=== PATIENT | male | born 1995 | race Caucasian/White ===

== ENCOUNTER 2024-10-24 09:21 | Emergency (ER) | payer BC, SELFPAY ==
[2024-10-24 09:35] VITALS: BP 131/84
[2024-10-24 10:16] LABS: COVID-19 Antigen Positive (Negative)
--- NOTE | 2024-10-24 10:31 | ED.GENMED ---
History of Present Illness
General
Chief Complaint: Cold/Flu/URI Symptoms
Time Seen by Provider: 10/24/24 10:30
History of Present Illness
History of Present Illness:
29-year-old male without any significant past medical history presenting to the emergency department for cough and palpitations. Patient reports that he has been feeling unwell for the past 3 days with chills, cough, tightness in his chest. He
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 Denies any known sick contacts, however his started to feel similarly this morning. Denies abdominal pain or GI symptoms. Denies any cardiac history in the
past. Denies any difficulty breathing. Denies additional acute medical complaints
Phy Exam
Physical Exam
Physical Exam:
General: Well-appearing, no clinical signs of dehydration, nontoxic and in no acute distress
HEENT: protecting airway
Neck: appears supple
CV: Normal heart rate, regular rhythm
Resp: No accessory muscle use, no increased work of breathing, lungs clear to auscultation bilaterally
Abd: No distention
Extremities: No deformities, no swelling
Neuro: alert, no focal neurologic deficit
: deferred
Rectal: deferred
Psych: Normal affect
Skin: Intact
Course
Orders/Labs/Results
Orders:
Orders
10/24/24 09:39
ECG [Electrocardiogram (*1)] Urgent
Reason for Study: Palpitations
10/24/24 09:40
EKG- Treatment ONCE
10/24/24 09:47
COVID-19 Antigen Urgent
Source: Nasal Swab
Influenza A+B Rapid Molecular Urgent
AMY Source: Nasal Swab
Specimen Description:
Abnormal Lab Results
10/24/24
09:47
SARS-CoV-2 Antigen Positive A
(Negative)
Vital Signs
Initial and Last Documented VS:
Initial Vital Signs
Temp Pulse Resp BP Pulse Ox
98.3 F 97 16 131/84 100
10/24/24 09:35 10/24/24 09:35 10/24/24 09:35 10/24/24 09:35 10/24/24 09:35
Last Documented Vital Signs
Temp Pulse Resp BP Pulse Ox
98.3 F 97 16 131/84 100
10/24/24 09:35 10/24/24 09:35 10/24/24 09:35 10/24/24 09:35 10/24/24 09:35
MDM/Problems Addressed
MDM/Problems Addressed:
29-year-old male without significant past medical history presenting for chills, cough, palpitations, chest tightness. Vital signs are normal.
On exam patient is resting comfortably, no acute distress or discomfort. Unremarkable cardiac and pulmonary exam. Heart rate is regular and patient in no acute respiratory distress. No focal abnormal lung sounds. Patient had viral swabs obtained
prior to my assessment, is COVID-positive, consistent with patient underlying symptoms. EKG obtained, nonischemic without concern for ACS. Do feel patient tightness and palpitations secondary to underlying infection and coughing. Ambulatory pulse
ox obtained, no desaturation. At this time feel stable for discharge with outpatient supportive therapy. Advised Tylenol, Motrin, fluids, rest. Return precautions discussed and patient verbalized understanding
*EKG
Interpreted by ED Provider?: Yes
EKG Intrepretation Date: 10/24/24
EKG Intrepretation Time: 10:58
Interpretation: normal
Comparison EKG: no comparison EKG present
Heart Rate: 85
Rate: normal
Rhythm: sinus
[place]: normal axis
Interval: normal interval
QRS Pattern: normal QRS
Ischemia: no ischemia
*Critical Care Note
Total Time (30-74mins, 75-104mins- exclusive of procedures): Not Applicable
ED Attending Note
-
Portions of this chart may have been created with voice recognition software.� Occasional wrong word or��sound alike� substitutions may have occurred due to the inherent limitations of voice recognition software.
Discharge Plan
Discharge Date and Time
Print Language: FILIPINO
== END 2024-10-24 11:30 | disposition home or self-care (01) ==
LOC: EMR 09:21
PROVIDERS: Emergency Medicine; EMERGENCY PHYSICIAN Student in an Organized Health Care Education/Training Program
DX: U07.1 COVID-19 (principal); R05.9 Cough, unspecified
CPT/HCPCS: 99284; 87502; 87811; 93005